=== PATIENT | female | born 1945 | race Asian ===

== ENCOUNTER → 2016-06-12 08:14 | Day surgery (SDC) | payer OTHER ==
--- NOTE | 2016-05-27 20:10 | HP ---
PREOPERATIVE HISTORY AND PHYSICAL: DATE OF ADMISSION/SURGERY: 06/12/16 This patient is scheduled for same day surgery admission by Dr. Beard on , 06/12/16. ATTENDING SURGEON: Eleazar Beard MD (dictated by Tonya Keane NP). CHIEF COMPLAINT: Ventral incisional hernia. HISTORY OF PRESENT ILLNESS: The patient is a 70-year-old female referred to Dr. Beard by Dr. Valencia for evaluation of a ventral incisional hernia. She had coronary artery bypass grafting at [facility] in August 2015 and has since developed a lump in the lower part of the sternotomy incision. She describes intermittent gripping pain when she is active or after eating. She denies any signs or symptoms to suggest incarceration or strangulation. Dr. Beard examined the patient and noted in the subxiphoid region, there is a palpable hernia of about 6 cm across which is soft, reducible, and tender. Dr. Beard reviewed her CAT scan, which confirms a hernia in that region and also the left lobe of the liver is up in there as well. Dr. Beard discussed the findings with the patient and her daughter who translates for her as the patient speaks [place]. He recommended open repair of the ventral incisional hernia with mesh as a same day surgery procedure and described the nature of the surgery, the rationale for the procedure, the relevant risks and benefits and today, I reviewed the expected postoperative care and recovery. The patient and her daughter have had a chance to ask questions and stated that they understand the information and are satisfied with the answers given to their questions. The patient will sign surgical consent on the day of surgery. PAST MEDICAL HISTORY: Significant for non-ST elevated myocardial infarction, , when she was transferred to [facility] and underwent coronary artery bypass grafting, 4 vessels, on 08/13/15, as well as aortic valve bioprosthesis and mitral valve repair. Hypertension, hyperlipidemia, left bundle branch block, diet-controlled type 2 diabetes, and osteoarthritis in most joints. PAST SURGICAL HISTORY: Coronary artery bypass graft x4, mitral valve repair, aortic valve repair with bioprosthesis, 08/13/15, at [facility]. MEDICATIONS: 1. Omeprazole 20 mg p.o. daily. 2. Lorazepam 1 mg daily at bedtime. 3. Atorvastatin 20 mg p.o. daily. 4. Losartan 25 mg p.o. daily. 5. Aspirin 81 mg p.o. daily and the patient was advised to stay on the aspirin in the perioperative period. 6. Metoprolol 25 mg half tablet daily. 7. Gabapentin 300 mg 1 capsule 2 to 3 times daily. 8. Restasis 0.05% 1 drop in both eyes b.i.d. 9. Senokot 1 to 2 tablets 1 to 2 times a day as needed. ALLERGIES: AMBIEN caused some type of unspecified reaction and IODINE-BASED DIAGNOSTIC DYE AGENTS caused rash. FAMILY HISTORY: Parents due to unknown causes. There was diabetes and hypertension in the family. SOCIAL HISTORY: She is and lives with her daughter. She speaks only [place]. She is a former smoker and quit 20 years ago. She denies the use of alcohol or other substances. REVIEW OF SYSTEMS: She denies any recent chest pain, palpitations, or dyspnea. She denies any history of deep vein thrombosis or pulmonary embolism. She has a history of coronary artery disease and myocardial infarction and coronary artery bypass grafting as well as aortic valve replacement and mitral valve replacement and ischemic cardiomyopathy and postoperative atrial fibrillation which is resolved. Please see Dr. Elder Ragsdale's consultation note from Cardiology as well as his clearance note to proceed with the upcoming surgery. She denies any dizziness or syncopal episodes. She denies any previous anesthesia complications. She denies any bleeding tendencies. She denies any nausea or vomiting. She does have occasional GERD which is improved on omeprazole. She denies any dysuria. She has osteoarthritis and walks with an unsteady gait. PHYSICAL EXAMINATION GENERAL SURVEY: The patient is a 70-year-old female, well developed, well nourished in no acute distress. VITAL SIGNS: Height 61 inches, weight 170 pounds, body mass index 32.1. Blood pressure 128/86, pulse 72 and regular, respiratory rate 18, temperature 97.3 tympanic. HEENT: Benign. NECK: Supple. No cervical lymphadenopathy. No carotid bruits. LUNGS: Bibasilar crackles. No increased work of breathing or tachypnea. HEART: Regular rate and rhythm. A 2/6 systolic murmur. Well-healed median sternotomy incision with obvious bulge at the inferior portion. The bulge measures approximately 6 cm across, is tender, soft, and reducible. ABDOMEN: Protuberant, soft, nontender throughout. No obvious organomegaly or umbilical hernia. EXTREMITIES: Warm and well perfused without edema or skin ulcerations. PELVIC AND RECTAL: Exams deferred. NEUROLOGIC: Alert and oriented x3. Gait is somewhat unsteady with transfer from exam table to chair. SKIN: Warm, dry, intact. IMPRESSION: Ventral incisional hernia. PLAN: Same day surgery admission to Dr. Beard's service on , 06/12/16 , for open repair of ventral incisional hernia with mesh. ABRAM KEANE NP CC: Dr. Beard at [facility]; Jael Valencia MD; Elder Ragsdale DO * [id number]/[facility] #: [id number] [facility]PITALKentrell
[~2016-06-12 08:14] MED LIST: Buffered Lidocaine 1% SYRIN* 3 ML/SYR SYRINGE INTRADERM ONE; Bupivacaine 0.5% W/EPI SDV* 30 ML VIAL ONE; Dexamethasone IV* 4 MG/ML 1 ML (4 MG) IV SLOW PU ONE; Dexamethasone IV* 4 MG/ML 1 ML (4 MG) ONE; EPHEDrine (Pressors)* 50 MG/ML VIAL ONE; Famotidine IV* 10 MG/ML 2 ML (20 mg) IV ONE; Famotidine IV* 10 MG/ML 2 ML (20 mg) ONE; Glycopyrrolate IV* 0.2 MG/ML 1 ML VIAL ONE; Labetalol IV* 5 MG/ML 20 ML VIAL ONE; Lidocaine 1% INJ* 10 MG/ML 30 ML SDV ONE; Lidocaine 2% PF* 5 ML VIAL ONE; Neostigmine Methylsulfate* 2 MG/2 ML SYRINGE ONE; Ondansetron INJ* 2 MG/ML VIAL ONE; PROCHLORPERAZINE INJ 5 MG/ML 2 ML VIAL IV PRN; Propofol* 10 MG/ML 20 ML BTL IV PUSH ONE; Rocuronium* 10 MG/ML VIAL ONE; ceFAZolin 2 GM PREMIX(*) 2 GM/50 ML BAG IVPB ONE; fentaNYL* 50 MCG/ML 2 ML VIAL (100 MCG VIAL) IV PRN; fentaNYL* 50 MCG/ML 2 ML VIAL (100 MCG VIAL) ONE; oxyCODONE/Acetamin 5/325 MG* TAB ONE; oxyCODONE/Acetamin 5/325 MG* TAB PO PRN
[2016-06-12 09:02] LABS: Hematocrit 37 % (35-47); Hemoglobin 12.2 g/dl (12.0-16.0)
[2016-06-12 14:45] VITALS: BP 125/70
--- NOTE | 2016-06-13 01:43 | OP ---
DATE OF OPERATION: 06/12/16 [facility] DATE OF : 47 SURGEON: Eleazar Beard MD. ASSISTANT PLANT CONTROL OPERATOR: Dr. Marcano. ANESTHESIOLOGIST: Dr. Aramblua. ANESTHESIA: General anesthetic, local infiltration. PRE-OP DIAGNOSIS: Epigastric ventral hernia. POST-OP DIAGNOSIS: Epigastric ventral hernia. OPERATIVE PROCEDURE: Open repair of epigastric ventral hernia with mesh. DESCRIPTION OF PROCEDURE: The patient was supine on the operative table. After adequate general anesthetic, compression stockings, River Hugger warmer and intravenous antibiotics, the abdomen and lower chest were prepped with antiseptic, draped in a sterile fashion. The hernia was palpable in the subxiphoid region. An ellipse of skin was taken out to remove the hypertrophic scar, and then the hernia sac was identified, it was dissected free and reduced. Additional sac material was resected and sent for pathologic evaluation. Submuscular dissection was carried out. The defect was approximately 7 cm across and roughly the same in the craniocaudad direction. A 7 x 9 inch Ventrio patch was chosen for underlay position, this was oriented transversely. It was sutured up underneath the muscle with full thickness sutures, approximately 8 sutures were put around circumferentially to help secure the patch in place and then the Securestrap tacker was used to place additional tacks for additional security, holding the mesh up and then the fascia was closed over top with 0 Vicryl. Irrigation was carried out. The subcutaneum was closed with 3-0 Vicryl, which was also used to tack down to the fascia to close the pace. Skin was closed with surgical clips followed by sterile dressing. She tolerated the procedure well and was brought to Recovery in good condition. No complications. No drains. Pathologic specimen, as above. Sponge and instrument counts correct. Estimated blood loss was less than 50 mL. CC: Eleazar Beard MD; Jael Valencia MD * [id number]/[facility] #: [id number] [facility]
== END | disposition home or self-care (01) ==
LOC: OR 08:14
PROVIDERS: ATTEND Surgery
DX: K43.2 Incisional hernia without obstruction or gangrene (principal); I25.810 Atherosclerosis of coronary artery bypass graft(s) without angina pectoris; I44.7 Left bundle-branch block, unspecified; E11.69 Type 2 diabetes mellitus with other specified complication; I25.5 Ischemic cardiomyopathy; Z95.2 Presence of prosthetic heart valve; I25.2 Old myocardial infarction; Z95.1 Presence of aortocoronary bypass graft; Z68.32 Body mass index [BMI] 32.0-32.9, adult
CPT/HCPCS: 36415; 85014; 85018; 88302; A9270-GY; C1776; C1781; J0690; J1100; J2001; J2405; J2704; J3010

== ENCOUNTER 2016-09-23 08:31 | Day surgery (SDC) | payer OTHER ==
[~2016-09-23 08:31] MED LIST changes: +Acetaminophen TAB* 325 MG PO PRN; +Buffered Lidocaine 0.9% SYRIN* 5 ML/SYR SYRINGE INTRADERM ONE; -Buffered Lidocaine 1% SYRIN* 3 ML/SYR SYRINGE INTRADERM ONE; -Bupivacaine 0.5% W/EPI SDV* 30 ML VIAL ONE; -Dexamethasone IV* 4 MG/ML 1 ML (4 MG) IV SLOW PU ONE; -Dexamethasone IV* 4 MG/ML 1 ML (4 MG) ONE; -EPHEDrine (Pressors)* 50 MG/ML VIAL ONE; -Famotidine IV* 10 MG/ML 2 ML (20 mg) IV ONE; -Famotidine IV* 10 MG/ML 2 ML (20 mg) ONE; -Glycopyrrolate IV* 0.2 MG/ML 1 ML VIAL ONE; -Labetalol IV* 5 MG/ML 20 ML VIAL ONE; -Lidocaine 1% INJ* 10 MG/ML 30 ML SDV ONE; -Lidocaine 2% PF* 5 ML VIAL ONE; -Neostigmine Methylsulfate* 2 MG/2 ML SYRINGE ONE; -Ondansetron INJ* 2 MG/ML VIAL ONE; -PROCHLORPERAZINE INJ 5 MG/ML 2 ML VIAL IV PRN; -Propofol* 10 MG/ML 20 ML BTL IV PUSH ONE; -Rocuronium* 10 MG/ML VIAL ONE; -ceFAZolin 2 GM PREMIX(*) 2 GM/50 ML BAG IVPB ONE; -fentaNYL* 50 MCG/ML 2 ML VIAL (100 MCG VIAL) IV PRN; -fentaNYL* 50 MCG/ML 2 ML VIAL (100 MCG VIAL) ONE; -oxyCODONE/Acetamin 5/325 MG* TAB ONE; -oxyCODONE/Acetamin 5/325 MG* TAB PO PRN
[2016-09-23] MEDS ORDERED: Midazolam* 1 MG/ML 2 ML VIAL (2 MG) ONE (09:27)
[2016-09-23] MEDS ORDERED: fentaNYL* 50 MCG/ML 2 ML VIAL (100 MCG VIAL) ONE (09:27)
[2016-09-23] MEDS ORDERED: Metoprolol Tartrate TAB* 25 MG ONE (09:50)
[2016-09-23] MEDS ORDERED: Propofol* 10 MG/ML 20 ML BTL IV PUSH ONE (10:11)
[2016-09-23 10:49] VITALS: BP 137/80
[2016-09-23] MEDS ORDERED: Phenylephrine 2.5% OPTH.SOL* 2 ML BTL ONE (13:59)
[2016-09-23] MEDS ORDERED: Flurbiprofen 0.03% OPTH.SOL* 2.5 ML BTL ONE (13:59)
[2016-09-23] MEDS ORDERED: Neomycin/Polymy/Dex OPHTH.OIN* 3.5 GM ONE (13:59)
[2016-09-23] MEDS ORDERED: Tropicamide 1% OPTH.SOL* BTL ONE (13:59)
[2016-09-23] MEDS ORDERED: Cyclopentolate 1% OPTH.SOL* 2 ML BTL ONE (13:59)
[2016-09-23] MEDS ORDERED: Lidocaine 1% MPF* 2 ML VIAL ONE (13:59)
[2016-09-23] MEDS ORDERED: Tetracaine 0.5% OPTH.SOL 4 ML* 1 DROP BTL ONE (14:00)
[2016-09-23] MEDS ORDERED: Buffered Lidocaine 0.9% SYRIN* 5 ML/SYR SYRINGE ONE (14:00)
--- NOTE | 2016-09-24 03:44 | OP ---
DATE OF OPERATION: 09/23/16 [facility] DATE OF : 47 SURGEON: Dr. Tim Vásquez. EVENT PLANNING INTERN: None. ANESTHESIOLOGIST: Camden Mcgarry MD ANESTHESIA: Topical with intravenous sedation. PRE-OP DIAGNOSIS: Cataract, right eye. POST-OP DIAGNOSIS: Cataract, right eye. OPERATIVE PROCEDURE: Phacoemulsification and cataract extraction with posterior chamber intraocular lens implant, right eye. COMPLICATIONS: None. BLOOD LOSS: None. DESCRIPTION OF PROCEDURE: The patient was brought to the operating room and received a small amount of intravenous sedation. A drop of tetracaine was placed in her right eye. She was prepped and draped in the usual sterile fashion for ophthalmic surgery and attention was directed to the right eye where a speculum was placed. A paracentesis was created at the 11 o'clock position and 0.1 cc of 1 percent preservative-free lidocaine was injected into the anterior chamber followed by DisCoVisc. The eye was digitally stabilized while a 2.75 mm keratome was used to create a triplanar clear corneal incision at the 9 o'clock position. A continuous curvilinear capsulorrhexis was created with a cystotome and Utrata forceps. BSS on a cannula was used to hydrodissect the lens from the capsule. Phacoemulsification was performed in a divide-and- conquer technique to create four fragments which were removed. Residual cortical material was removed with irrigation and aspiration. DisCoVisc was used to inflate the capsular bag and an AU00T0 23.5 diopter lens was folded and inserted into the capsular bag. DisCoVisc was removed using irrigation and aspiration. BSS on a cannula was used to hydrate the corneal stroma and seal the wound. At the end of the case the pupil was round and the lens was centered. The eye was of normal pressure and the wound was water tight. The speculum was removed and topical Maxitrol ointment was placed on the surface of the eye. The eye was closed, patched and shielded and the patient was sent to the recovery room in stable condition with post operative instructions and follow-up appointment given. [id number]/[facility] #: [id number] MTDD
== END 2016-09-23 10:42 | disposition home or self-care (01) ==
LOC: OREAST 08:31
PROVIDERS: ATTEND Ophthalmology
DX: H26.9 Unspecified cataract (principal); E11.8 Type 2 diabetes mellitus with unspecified complications; I25.810 Atherosclerosis of coronary artery bypass graft(s) without angina pectoris; Z87.891 Personal history of nicotine dependence; Z95.2 Presence of prosthetic heart valve
CPT/HCPCS: A9270-GY; J2250; J2704; J3010; V2632

== ENCOUNTER 2016-09-30 11:01 | Day surgery (SDC) | payer OTHER ==
[2016-09-30] MEDS ORDERED: fentaNYL* 50 MCG/ML 2 ML VIAL (100 MCG VIAL) ONE (12:22)
[2016-09-30] MEDS ORDERED: Midazolam* 1 MG/ML 2 ML VIAL (2 MG) ONE (12:22)
[2016-09-30] MEDS ORDERED: Phenylephrine 2.5% OPTH.SOL* 2 ML BTL ONE (13:41)
[2016-09-30] MEDS ORDERED: Tetracaine 0.5% OPTH.SOL 4 ML* 1 DROP BTL ONE (13:41)
[2016-09-30] MEDS ORDERED: Neomycin/Polymy/Dex OPHTH.OIN* 3.5 GM ONE (13:41)
[2016-09-30] MEDS ORDERED: Flurbiprofen 0.03% OPTH.SOL* 2.5 ML BTL ONE (13:41)
[2016-09-30] MEDS ORDERED: Lidocaine 1% MPF* 2 ML VIAL ONE (13:41)
[2016-09-30] MEDS ORDERED: Cyclopentolate 1% OPTH.SOL* 2 ML BTL ONE (13:41)
[2016-09-30] MEDS ORDERED: Tropicamide 1% OPTH.SOL* BTL ONE (13:41)
[2016-09-30] MEDS ORDERED: Buffered Lidocaine 0.9% SYRIN* 5 ML/SYR SYRINGE ONE (13:42)
[2016-09-30 14:16] VITALS: BP 138/80
--- NOTE | 2016-09-30 15:30 | OP ---
DATE OF OPERATION/DATE OF DICTATION: 09/30/2016 - [facility] DATE OF : 1945. SURGEON: Dr. Tim Vásquez. WAREHOUSE SHIFT SUPERVISOR: None. ANESTHESIOLOGIST: Camden Mcgarry MD ANESTHESIA: Topical with intravenous sedation. PRE-OP DIAGNOSIS: Cataract, left eye. POST-OP DIAGNOSIS: Cataract, left eye. OPERATIVE PROCEDURE: Phacoemulsification and cataract extraction with posterior chamber intraocular lens implant, left eye. COMPLICATIONS: None. BLOOD LOSS: None. DESCRIPTION OF PROCEDURE: The patient was brought to the operating room and received a small amount of intravenous sedation. A drop of Tetracaine was placed in her left eye. She was prepped and draped in the usual sterile fashion for ophthalmic surgery and attention was directed to the left eye where a speculum was placed. A paracentesis was created at the 5 o'clock position and 0.1 cc of 1 percent preservative-free Lidocaine was injected into the anterior chamber followed by DisCoVisc. The eye was digitally stabilized while a 2.75 mm keratome was used to create a triplanar clear corneal incision at the 3 o'clock position. A continuous curvilinear capsulorrhexis was created with a cystotome and Utrata forceps. BSS on a cannula was used to hydrodissect the lens from the capsule. Phacoemulsification was performed in a divide-and- conquer technique to create four fragments which were removed. Residual cortical material was removed with irrigation and aspiration. DisCoVisc was used to inflate the capsular bag and an AUOTTO 23.5 diopter lens was folded and inserted into the capsular bag. DisCoVisc was removed using irrigation and aspiration. BSS on a cannula was used to hydrate the corneal stroma and seal the wound. At the end of the case the pupil was round and the lens was centered. The eye was of normal pressure and the wound was water tight. The speculum was removed and topical Maxitrol ointment was placed on the surface of the eye. The eye was closed, patched and shielded and the patient was sent to the recovery room in stable condition with post operative instructions and follow-up appointment given. [id number]/[facility] #: [id number] [facility] SYSTEMKentrell
== END 2016-09-30 14:12 | disposition home or self-care (01) ==
LOC: OREAST 11:01
PROVIDERS: ATTEND Ophthalmology
DX: H25.12 Age-related nuclear cataract, left eye (principal); E11.9 Type 2 diabetes mellitus without complications; Z79.84 Long term (current) use of oral hypoglycemic drugs; Z87.891 Personal history of nicotine dependence; I25.10 Atherosclerotic heart disease of native coronary artery without angina pectoris; Z95.1 Presence of aortocoronary bypass graft; I10 Essential (primary) hypertension
CPT/HCPCS: A9270-GY; J2250; J3010

== ENCOUNTER 2018-03-19 16:45 | Emergency (ER) | payer OTHER ==
[2018-03-19 17:01] VITALS: BP 156/81
[2018-03-19] MEDS ORDERED: Albuterol/Ipratropium NEB.SOL* Albuterol 2.5 MG/Ipratropium 0.5 MG 3 ML INH ONE ×2 (17:08→17:27)
--- NOTE | 2018-03-19 17:21 | UC ---
Respiratory Complaint HPI - HPI Summary HPI Summary: Patient presents to urgent care with her daughter. Patient speaks [place] Citizen. Patient's daughter present and interpreting. Declined offer for [facility]- based translating services. Patient reported to have a cough for the last 2-3 days. Daughter states she had a fever to 101 yesterday. No antipyretics or fevers today. Patient with progressive wheezing complains of shortness of breath. Patient's cough is productive although she doesn't know color. Patient states she gets short of breath with activity. Patient denies chest pain. No nausea or vomiting. Patient states she makes urine and no diarrhea. Patient does not currently smoke. Patient with a history of tobacco use but quit several years ago. Patient to get the flu vaccine approximately 1 month ago. Patient does not have any known sick contacts. Patient does have a history of open-heart surgery for which her daughter states she had her bowels fixed. Unsure which valve. Patient has not have a history of congestive heart failure. Patient has not had any ankle or leg swelling to report. Patient's medications reviewed this visit. 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 Onset/Duration: Gradual Onset Timing: Constant Pain Intensity: 0 - Allergies/Home Medications Allergies/Adverse Reactions: Allergies Allergy/AdvReac Type Severity Reaction Status Date / Time iodine Allergy Rash Verified 03/19/18 17:02 zolpidem [From Ambien] Allergy Hallucinati Verified 03/19/18 17:02 ons PMH/Surg Hx/FS Hx/Imm Hx Endocrine History: Diabetes, Dyslipidemia Cardiovascular History: Other - cardiac valve surgery Respiratory History: Other - previous tobacco use - none current Other History Of: Anticoagulant Therapy - Surgical History Surgical History: Yes Surgery Procedure, Year, and Place: CABG X4, AVR, MV Repair, Saphenous vein graft harvest, c section - Family History Family History: R & n/C - Social History Lives: With Family Alcohol Use: None Substance Use Type: None Smoking Status (MU): Former Smoker Type: Cigarettes Amount Used/How Often: 2 packs a day Length of Time of Smoking/Using Tobacco: quit 20 years ago Have You Smoked in the Last Year: No When Did the Patient Quit Smoking/Using Tobacco: 20 yrs ago Household Exposure Type: Cigarettes - Immunization History Most Recent Influenza Vaccination: 2016 Most Recent Tetanus Shot: unk Most Recent Pneumonia Vaccination: 2016 Review of Systems All Other Systems Reviewed And Are Negative: Yes Constitutional: Positive: Fever, Fatigue Skin: Positive: Negative Respiratory: Positive: Shortness Of Breath, Cough, Other - wheeze Cardiovascular: Positive: Negative Gastrointestinal: Positive: Negative Motor: Positive: Negative Physical Exam - Summary Physical Exam Summary: Vital Signs Reviewed: Yes - tacynpneic - repeat temp - no fever A, tachypnea, tired appearing, audible wheeze Eyes: Conjunctiva Clear, MAIA. EOM intact and full ENT: Hearing grossly normal TM x 2 clear, mmoist, uvula midline, no exudate, no erythema Neck: Positive: Supple Respiratory: Positive: increased RR, coarse cough with yellow production, rhonci right base, scatterd wheeze, + accessory muscle use, ext warm 1+ edema LE Cardiovascular: RRR nl s1, s2 no m/r CBT <2 sec abd soft + BS nt/nd no guarding, no distension Musculoskeletal Exam: SALAS x 4 without difficulty Strength Intact, ROM Intact Neurological: Positive: Alert, + sensation throughout Psychological: Positive: Normal Response To Family Skin: Positive: no rash, no ecchymosis Triage Information Reviewed: Yes Vital Signs: Initial Vital Signs Temp 98.7 F 03/19/18 16:57 Pulse 67 03/19/18 16:57 Resp 44 03/19/18 16:57 BP 156/81 03/19/18 16:57 Pulse Ox 99 03/19/18 16:57 UC Diagnostic Evaluation - Laboratory O2 Sat by Pulse Oximetry: 99 - Radiology Radiology Interpretation Completed By: Radiologist - Patient Name: EMILEE SOUTH Medical Record#: [id number] Re-Evaluation - Re-Evaluation First Eval Re-Evaluation Time: 17:50 Change: Improved - Pt with improved RR following first neb continues with coarse BS right and scattered wheeze Will check chest xray and second neb Second Eval Re-Evaluation Time: 18:15 Comment: Pt continues with wheeze and reporting SOB. CXR reveals b/l infiltrates. Recommend pt to ED - daughter and pt in agreement. Transfer by EMS for resp treatment, IVF (sepsis considered) and monitoring. influenza neg Respiratory Course/Dx - Course Course Of Treatment: Patient presents to urgent care with 3 days progressive productive cough of yellow sputum. Patient also has had a fever but not in the last 24 hours. Patient here today because of cough and progressive shortness of breath with ambulation. On exam patient noted to be tachypneic using accessory muscles. Patient with rhonchi right base and diffuse inspiratory next 3 wheezing. Patient afebrile on the check 2. We'll give patient DuoNeb. We will check a chest x-ray we'll check flew. Patient does not markedly improved will likely transfer patient to the emergency department. Of note, patient does not speak [place]ian. Patient speaks [place] Citizen. Patient's daughter is present and interpreted for her. Hospital interpretation services declined - Differential Dx/Diagnosis Provider Diagnosis: Bilateral pneumonia Discharge - Sign-Out/Discharge Documenting (check all that apply): Patient Departure All imaging exams completed and their final reports reviewed: Yes - Discharge Plan Condition: Good Disposition: TRANS HIGHER LVL OF CARE FAC Referrals: Jael Valencia MD [Primary Care Provider] - - Billing Disposition and Condition Condition: GOOD Disposition: Trans Higher Lvl of Care Fac
[2018-03-19] MEDS ORDERED: methylPREDNISolone 125 MG* 2 ML VIAL IV ONE (18:05)
[2018-03-19] MEDS ORDERED: NS 0.9% 1000 ML* 1,000 ML IV ONE (18:05)
== END 2018-03-19 18:32 | disposition short-term general hospital (02) ==
LOC: UCEAST 16:45
DX: J18.9 Pneumonia, unspecified organism (principal); E11.9 Type 2 diabetes mellitus without complications; Z88.8 Allergy status to other drugs, medicaments and biological substances; Z95.1 Presence of aortocoronary bypass graft; Z87.891 Personal history of nicotine dependence
CPT/HCPCS: 71046; 99203; A9270-GY; G0463; J2930

== ENCOUNTER 2018-03-19 18:55 | Inpatient (IN) | payer OTHER ==
[2018-03-19] MEDS ORDERED: cefTRIAXone(*) 1 GM in NS 0.9% 50 ML* 50 ML IVPB ONE (19:08)
[2018-03-19] MEDS ORDERED: Azithromycin IV(*) 500 MG in NS 0.9% 250 ML* 250 ML IVPB ONE (19:08)
[2018-03-19] MEDS ORDERED: NS 0.9% 1000 ML*IV.FLUID IV ONE (19:15)
--- NOTE | 2018-03-19 19:15 | ED ---
Complex/Multi-Sys Presentation - HPI Summary HPI Summary: 72 year old F brought in by ambulance to [facility] from Urgent Care accompanied by daughter complains of cough since five days ago, worse since this afternoon. Symptoms aggravated by nothing. Symptoms alleviated by nothing. Patient's daughter delivers history. She notes that patient reported waxing and waning shortness of breath, chills, fever since 03/14/18. Additionally, patient feels shakey, weak, and has decreased appetite. Patient was seen this afternoon at Urgent Care, where she had CXR and received fluids and breathing treatment. CXR showed bilateral pneumonia. - History Of Current Complaint Chief Complaint: EDShortnessOfBreath Time Seen by Provider: 03/19/18 19:00 Hx Obtained From: Family/News Copy Editor - daughter Onset/Duration: Lasting Days - 5, Worse Since - this afternoon Severity Currently: None Aggravating Factor(s): Nothing Alleviating Factor(s): Nothing Associated Signs And Symptoms: Positive: Other - shortness of breath, chills, fever, shakiness, weakness, decreased appetite - Allergies/Home Medications Allergies/Adverse Reactions: Allergies Allergy/AdvReac Type Severity Reaction Status Date / Time iodine Allergy Rash Verified 03/19/18 17:02 zolpidem [From Ambien] Allergy Hallucinati Verified 03/19/18 17:02 ons PMH/Surg Hx/FS Hx/Imm Hx Previously Healthy: No Endocrine/Hematology History: Reports: Hx Anticoagulant Therapy, Hx Diabetes - not on medication Cardiovascular History: Reports: Hx Coronary Artery Disease, Hx Hypercholesterolemia, Hx Hypertension - on meds, Hx Valvular Heart Disease - mitral valve repair, Other Cardiovascular Problems/Disorders - LEFT BUNDLE BRANCH BLOCK Denies: Hx Angina, Hx Congestive Heart Failure, Hx Pacemaker/ICD GI History: Reports: Hx Gastroesophageal Reflux Disease Denies: Other GI Disorders History: Reports: Other Problems/Disorders - ACUTE RENAL FAILURE, LISTED IN SUMMARY Denies: Hx Renal Disease Musculoskeletal History: Reports: Hx Arthritis - luis knees, Hx Osteoporosis, Other Musculoskeletal History - OPEN VENTRAL HERNIA REPAIR JUNE 2016 Sensory History: Reports: Hx Contacts or Glasses Denies: Hx Hearing Aid Opthamlomology History: Reports: Hx Contacts or Glasses Neurological History: Reports: Hx Headaches, Hx Peripheral Neuropathy Denies: Other Neuro Impairments/Disorders Psychiatric History: Reports: Hx Anxiety - on meds - Cancer History Hx Chemotherapy: No Hx Radiation Therapy: No - Surgical History Surgery Procedure, Year, and Place: CABG X4, AVR, MV Repair, Saphenous vein graft harvest, c section Hx Anesthesia Reactions: No Infectious Disease History: No Infectious Disease History: Denies: Hx Clostridium Difficile, Hx Hepatitis, Hx Human Immunodeficiency Virus (HIV), Hx of Known/Suspected MRSA, Hx Shingles, Hx Tuberculosis, Hx Known/ Suspected VRE, Hx Known/Suspected VRSA, History Other Infectious Disease, Traveled Outside the [place] in Last 30 Days - Family History Known Family History: Negative: Cardiac Disease Family History: R & n/C - Social History Alcohol Use: None Hx Substance Use: No Substance Use Type: Reports: None Hx Tobacco Use: Yes Smoking Status (MU): Former Smoker Type: Cigarettes Amount Used/How Often: 2 packs a day Length of Time of Smoking/Using Tobacco: quit 20 years ago Have You Smoked in the Last Year: No Review of Systems Positive: Fever, Chills, Other - shakiness, weakness Positive: Shortness Of Breath, Cough Positive: Other - decreased appetite All Other Systems Reviewed And Are Negative: Yes Physical Exam - Summary Physical Exam Summary: Appearance: General non-toxic appearance, afebrile, in mild respiratory distress with tachypnea Skin: Warm, dry, no obvious rash Eyes: sclera anicteric, no conjunctival pallor ENT: mucous membranes moist, pharynx appears normal Neck: Supple, nontender Respiratory: Bilateral diffuse ronchi and wheezes with bronchial breath sounds on the right Cardiovascular: Normal S1, S2. No murmurs. Normal distal pulses in tibial and radial bilaterally. Abdomen: Soft, nontender, normal active bowel sounds present Musculoskeletal: Normal, Strength/ROM Intact Neurological: A&Ox3, awake and alert, mentation is normal, speech is fluent and appropriate Psychiatric: affect is normal, does not appear anxious or depressed Triage Information Reviewed: Yes Vital Signs On Initial Exam: Initial Vitals Temp Pulse Resp BP Pulse Ox 99.3 F 87 25 164/99 97 03/19/18 19:06 03/19/18 19:06 03/19/18 19:06 03/19/18 19:06 03/19/18 19:06 Vital Signs Reviewed: Yes Diagnostics - Vital Signs Vital Signs Temp Pulse Resp BP Pulse Ox 03/19/18 19:06 99.3 F 87 25 164/99 97 - Laboratory Result Diagrams: 12/15/18 08:24 03/20/18 08:24 Lab Statement: Any lab studies that have been ordered have been reviewed, and results considered in the medical decision making process. - EKG 2004 Cardiac Rate: NL - 93 BPM EKG Rhythm: Sinus Rhythm Summary of EKG Findings: NSR at 93 BPM. Left bundle branch block Complex Multi-Symp Course/Dx Course Of Treatment: 72 year old F brought in by ambulance to [facility] from Urgent Care accompanied by daughter complains of cough, shortness of breath, fever, chills, increasing weakness since 5 days ago, worse since this afternoon. Patient was seen this afternoon at Urgent Care, where she had CXR and received fluids and breathing treatment. CXR from showed bilateral pneumonia. Bloodwork came back remarkable for lactic acid 3.4. UA unremarkable. EKG showed LBBB. Patient started on IV antibiotics. Discussed with Dr. Grijalva, hospitalist, who agrees to admit patient to [facility] [place]. Discussed disposition plan with patient and daughter who are both agreeable to admission. - Diagnoses Provider Diagnoses: Bilateral pneumonia - Physician Notifications Discussed Care Of Patient With: Chasidy Grijalva Time Discussed With Above Provider: 20:35 Instructed by Provider To: Other - Dr. Grijalva, hospitalist, agrees to admit patient. Discharge - Sign-Out/Discharge Documenting (check all that apply): Patient Departure - Admit - Discharge Plan Condition: Fair Disposition: ADMITTED TO [facility] - Billing Disposition and Condition Condition: FAIR Disposition: Admitted to [facility] - Attestation Statements Document Initiated by Edene: Yes Documenting Scribe: Makayla Garcia Provider For Whom Ryan is Documenting (Include Credential): David Jovel MD Scribrhonda Attestation: Makayla Bradley, scribed for David Jovel MD on 03/20/18 at 1816. Scribe Documentation Reviewed: Yes Provider Attestation: The documentation as recorded by the Makayla christie accurately reflects the service I personally performed and the decisions made by me, David Jovel MD Status of Scribe Document: Viewed
[2018-03-19] MEDS ORDERED: Albuterol/Ipratropium NEB.SOL* Albuterol 2.5 MG/Ipratropium 0.5 MG 3 ML INH ONE (19:21)
[2018-03-19] MEDS ORDERED: Albuterol/Ipratropium NEB.SOL* Albuterol 2.5 MG/Ipratropium 0.5 MG 3 ML ONE (19:23)
[2018-03-19 20:00] LABS: ABS Basophils 0 10^3/ul (0-0.2); ABS Eosinophils 0.8 10^3/ul (0-0.6); ABS Lymphocytes 1.7 10^3/ul (1.0-4.8); ABS Monocytes 0.4 10^3/ul (0-0.8); ABS Neutrophils 5.6 10^3/ul (1.5-7.7); ABS Nucleated RBC 0 10^3/ul; Eosinophil % 9.1 %; Hematocrit 37 % (35-47); Hemoglobin 12.5 g/dl (12.0-16.0); Lymphocyte % 19.5 %; Mean Corpuscular HGB Conc 33 g/dl (31-36); Mean Corpuscular Hemoglobin 30 pg (27-31); Mean Corpuscular Volume 91 fL (80-97); Mean Platelet Volume 8.5 fL (7.4-10.4); Nucleated Red Blood Cells % 0; Platelet Count 197 10^3/ul (150-450); Red Cell Distribution Width 14 % (10.5-15); White Blood Count 8.5 10^3/ul (3.5-10.8)
[2018-03-19 20:08] LABS: INR 1.02 (0.77-1.02)
[2018-03-19 20:19] LABS: Albumin 4.1 g/dL (3.2-5.2); Albumin/Globulin Ratio 1.1 (1-3); C Reactive Protein 83.97 mg/L (<8.01); Calcium 9.1 mg/dL (8.6-10.3); Globulin 3.7 g/dL (2-4); Potassium 3.2 mmol/L (3.5-5.0); Total Bilirubin 0.7 mg/dL (0.2-1.0); Total Protein 7.8 g/dL (6.4-8.9)
[2018-03-19] MEDS ORDERED: Acetaminophen TAB* 325 MG PO PRN (20:50)
[2018-03-19] MEDS ORDERED: Albuterol/Ipratropium NEB.SOL* Albuterol 2.5 MG/Ipratropium 0.5 MG 3 ML INH PRN (20:50)
[2018-03-19] MEDS ORDERED: Levalbuterol 0.63MG/3ML NEB* UNIT OF USE INH PRN (20:56)
[2018-03-19] MEDS ORDERED: NS 0.9% 1000 ML* 1,000 ML IV SCH (21:00)
--- NOTE | 2018-03-19 21:05 | ADMNOTE ---
Subjective Date of Service: 03/19/18 Interval History: code status full this is admission h/p h/p got from son who does not know her phx and meds that well ( he has been away [place] ) daughter is the caregiver pt herself is not a good historian hpi this is a 72 yr old female with cabg 4 v 1 yr ago was brought in by daughter after 3 day hx of sob upon ambulation/coughing/fever. pt told daughter that she could not breathe and spike to 102. daughter brought her to urgent --- > chest x ray showed b/l infil with neg flu ---> referred to er. pt was initially in mild to mod resp distress ---> got duoneb and rocephin/z pack for community acuqired pna ---> initial bnp 578 but she was found to have diffuse rales and wheezing upon exam ---> rr has decreased close to 20s got close 1.5 liter ivf from er. phx htn copd not on home oxygen cabg with 4 v one yr ago at [place] lbbb hyperlipidemia prob dm but son and pt herself could not verify ( dm diagnosis in cpoe ) pshx s/p cabg with 4 v social hx quit cig 30 yrs ago but and son still smokes no etoh able to walk indep fhx denied gracia Review of Systems - Measurements Intake and Output: Intake and Output Last 24 Hours 03/17/18 03/18/18 03/19/18 03/20/18 06:59 06:59 06:59 06:59 Weight 170 lb - Review of Systems General Comments: pertinent as per hpi Objective Active Medications: Acetaminophen (Tylenol Tab*) 650 mg PO Q6H PRN PRN Reason: FEVER/PAIN Albuterol/Ipratropium (Duoneb (Albuterol 2.5 Mg/Ipratropium 0.5 Mg)) 1 neb INH [id number] AWAKE PRN PRN Reason: sob/wheexing Aspirin (Aspirin Ec Tab*) 81 mg PO QAM [facility] Atorvastatin Calcium (Lipitor*) 40 mg PO QPM [facility] Cyclosporine (Restasis 0.05% Ophth) 1 drop BOTH EYES BID [facility]; Protocol Enoxaparin Sodium (Lovenox(*)) 40 mg SUBCUT Q24H [facility] Gabapentin (Neurontin Cap(*)) 300 mg PO BID [facility] Guaifenesin/Dextromethorphan (Robitussin Dm*) 5 ml PO Q4H PRN PRN Reason: COUGH Sodium Chloride (Ns 0.9% 1000 Ml*) 1,000 mls @ 100 mls/hr IV PER RATE [facility] Ceftriaxone Sodium 1 gm/ (Sodium Chloride) 50 mls @ 200 mls/hr IVPB Q24H [facility] Azithromycin 500 mg/ Sodium (Chloride) 250 mls @ 250 mls/hr IVPB Q24H [facility] Levalbuterol HCl (Xopenex 0.63mg/3ml Neb*) 0.63 mg INH Q2H PRN PRN Reason: SHORTNESS OF BREATH Losartan Potassium (Cozaar Tab*) 25 mg PO QAM [facility] Metoprolol Tartrate (Lopressor Tab*) 12.5 mg PO BID [facility] Non-Formulary Medication (Bisacodyl [Dulcolax]) 1 tab PO SEE INSTRUCTIONS PRN PRN Reason: CONSTIPATION Omeprazole (Prilosec Cap*) 20 mg PO QPM [facility] Vital Signs - 8 hr 03/19/18 03/19/18 03/19/18 19:06 19:08 19:22 Temperature 99.3 F Pulse Rate 87 88 Respiratory 25 35 Rate Blood Pressure 164/99 (mmHg) O2 Sat by Pulse 97 95 99 Oximetry 03/19/18 20:17 Temperature Pulse Rate 82 Respiratory 32 Rate Blood Pressure 143/88 (mmHg) O2 Sat by Pulse 95 Oximetry Oxygen Devices in Use Now: Nasal Cannula Appearance: in mild distress Eyes: No Scleral Icterus, PERRLA Ears/Nose/Mouth/Throat: NL Teeth, Lips, Gums, Clear Oropharnyx, Mucous Membranes Moist Neck: NL Appearance and Movements; NL JVP, Trachea Midline, No Thyroid Enlargement, Masses Respiratory: - - equal chest expansion in mild resp distress b/l diffuse ronchi and wheezing Abdominal: NL Sounds; No Tenderness; No Distention Extremities: No Edema, - - able to raise ue and le against gravity Skin: No Rash or Ulcers Neurological: Alert and Oriented x 3, NL Sensation, NL Muscle Strength and Tone Result Diagrams: 03/19/18 19:43 03/19/18 19:43 EKG Data: ns lbbb Assess/Plan/Problems-Billing Assessment: 72 yr old wf with hx of cad s/p cabg 4 v one yr ago copd not on home oxygen presented with sob/wheeler/wheezing/fever to 102 ---> initial wbc wnl but chest x ray done in urgent clinic showed b/l pna bnp on admission is close to 500 wbc is wnl - Patient Problems (1) Community acquired pneumonia Current Visit: Yes Status: Acute Code(s): J18.9 - PNEUMONIA, UNSPECIFIED ORGANISM SNOMED Code(s): 841274164 Comment: kyle and mg duoneb with xopenex prn oxygen as tolerated robutussin ck sputum cx (2) CAD (coronary artery disease) Current Visit: Yes Status: Acute Code(s): I25.10 - ATHSCL HEART DISEASE OF [place] CORONARY ARTERY W/O ANG PCTRS SNOMED Code(s): 45080197 Comment: tele with rosaura due to wheeler c/o echo continue outpt meds (3) COPD (chronic obstructive pulmonary disease) Current Visit: Yes Status: Acute Code(s): J44.9 - CHRONIC OBSTRUCTIVE PULMONARY DISEASE, UNSPECIFIED SNOMED Code(s): 98677606 Comment: oxygen support duoneb solumderol 40 mg times one given followed by solumderol 20 mg q 8 (4) HTN (hypertension) Current Visit: Yes Status: Acute Code(s): I10 - ESSENTIAL (PRIMARY) HYPERTENSION SNOMED Code(s): 08481031 Comment: sbp wnl continue outpt meds (5) Diastolic CHF Current Visit: Yes Status: Acute Code(s): I50.30 - UNSPECIFIED DIASTOLIC ( CONGESTIVE) HEART FAILURE SNOMED Code(s): 191039577 Comment: pt was found to have diffuse ronchi lasix 20 mg ivp times one moniter lytes echo in am (6) Hyperlipidemia Current Visit: Yes Status: Acute Code(s): E78.5 - HYPERLIPIDEMIA, UNSPECIFIED SNOMED Code(s): 66044334 Comment: lft wnl ck fasting lipid (7) DVT prophylaxis Current Visit: Yes Status: Acute Code(s): DLH8672 - SNOMED Code(s): 665883517 (8) Full code status Current Visit: Yes Status: Acute Code(s): Z78.9 - OTHER SPECIFIED HEALTH STATUS SNOMED Code(s): 475141064
[2018-03-19 21:25] LABS: Urine Appearance Clear; Urine Bacteria Absent (Absent); Urine Bilirubin Negative (Negative); Urine Blood 1+ (Negative); Urine Color Colorless; Urine Glucose Negative (Negative); Urine Ketones Negative (Negative); Urine Nitrite Negative (Negative); Urine Protein Negative (Negative); Urine Red Blood Cell Absent (Absent); Urine Specific Gravity 1.002 (1.010-1.030); Urine Urobilinogen Negative (Negative); Urine White Blood Cell Absent (Absent)
[2018-03-19] MEDS ORDERED: methylPREDNISolone SOD 40 MG* 1 ML VIAL IV ONE (21:30)
[2018-03-19] MEDS ORDERED: Furosemide IV* 10 MG/ML 2 ML VIAL (20 MG) IV ONE (21:30)
[2018-03-19] MEDS ORDERED: Magnesium Sulfate 1 GM IV* 1 GM/100 ML BAG IV ONE (21:30)
[2018-03-19] MEDS: Enoxaparin(*) 40 MG/0.4 ML SYR SUBCUT SCH (23:14)
[2018-03-19] MEDS: Metoprolol Tartrate TAB* 25 MG PO SCH (23:16)
[2018-03-19] MEDS: Gabapentin CAP(*) 300 MG PO SCH (23:16)
[2018-03-19] MEDS: Bisacodyl EC TAB* 5 MG PO PRN (23:17)
[2018-03-19] MEDS: CMCS:Cyclosporine 0.05% OPHTH (NF) 0.4 ML VIAL BOTH EYES SCH (23:17)
[2018-03-19] MEDS: Melatonin 3 MG TAB PO PRN (23:50)
[2018-03-20] MEDS: methylPREDNISolone SOD 40 MG* 1 ML VIAL IV SCH ×3 (05:54→20:31)
[2018-03-20] MEDS ORDERED: Potassium Chlor TAB* 20 MEQ TAB.ER PO SCH (06:00)
[2018-03-20] MEDS ORDERED: Furosemide IV* 10 MG/ML 2 ML VIAL (20 MG) IV ONE (06:00)
[2018-03-20] MEDS ORDERED: Potassium Chlor TAB* 20 MEQ TAB.ER PO ONE (06:00)
[2018-03-20] MEDS: Levalbuterol 0.63MG/3ML NEB* UNIT OF USE INH SCH ×3 (07:21→19:40)
[2018-03-20] MEDS: Furosemide IV* 10 MG/ML 2 ML VIAL (20 MG) IV SCH ×2 (08:18→20:31)
[2018-03-20] MEDS: Losartan TAB* 25 MG PO SCH (08:18)
[2018-03-20] MEDS: Gabapentin CAP(*) 300 MG PO SCH ×2 (08:18→20:28)
[2018-03-20] MEDS: Aspirin EC TAB* 81 MG TAB.EC PO SCH (08:19)
[2018-03-20] MEDS: Metoprolol Tartrate TAB* 25 MG PO SCH ×2 (08:19→20:27)
[2018-03-20] MEDS: Insulin REGULAR(*) 1 UNITS UNIT SUBCUT SCH ×4 (08:20→20:29)
[2018-03-20] MEDS: CMCS:Cyclosporine 0.05% OPHTH (NF) 0.4 ML VIAL BOTH EYES SCH ×2 (08:24→20:38)
[2018-03-20 08:56] LABS: ABS Basophils 0 10^3/ul (0-0.2); ABS Eosinophils 0 10^3/ul (0-0.6); ABS Lymphocytes 0.7 10^3/ul (1.0-4.8); ABS Monocytes 0.1 10^3/ul (0-0.8); ABS Neutrophils 10.1 10^3/ul (1.5-7.7); ABS Nucleated RBC 0 10^3/ul; Eosinophil % 0 %; Hematocrit 37 % (35-47); Hemoglobin 12.4 g/dl (12.0-16.0); Lymphocyte % 6.4 %; Mean Corpuscular HGB Conc 33 g/dl (31-36); Mean Corpuscular Hemoglobin 30 pg (27-31); Mean Corpuscular Volume 91 fL (80-97); Mean Platelet Volume 8.4 fL (7.4-10.4); Nucleated Red Blood Cells % 0; Platelet Count 236 10^3/ul (150-450); Red Blood Count 4.11 10^6/ul (4.00-5.40); Red Cell Distribution Width 14 % (10.5-15); White Blood Count 10.9 10^3/ul (3.5-10.8)
[2018-03-20 09:33] LABS: BUN/Creatinine Ratio 16.9 (8-20); Calcium 9.2 mg/dL (8.6-10.3); EGFR Non-African American 62.5 (>60); HDL Cholesterol 33.8 mg/dL; Potassium 3.2 mmol/L (3.5-5.0)
[2018-03-20 09:45] LABS: TSH (Thyroid Stimulating Horm) 0.31 mcIU/mL (0.34-5.60)
--- NOTE | 2018-03-20 15:49 | PN ---
Subjective Date of Service: 03/20/18 Interval History: Reports some improvement in breathing Objective Active Medications: Acetaminophen (Tylenol Tab*) 650 mg PO Q6H PRN PRN Reason: FEVER/PAIN Albuterol/Ipratropium (Duoneb (Albuterol 2.5 Mg/Ipratropium 0.5 Mg)) 1 neb INH [id number] AWAKE PRN PRN Reason: sob/wheexing Aspirin (Aspirin Ec Tab*) 81 mg PO QAM [facility] Last Admin: 03/20/18 08:19 Dose: 81 mg Atorvastatin Calcium (Lipitor*) 40 mg PO QPM [facility] Bisacodyl (Dulcolax Ec Tab*) 5 mg PO DAILY PRN PRN Reason: CONSTIPATION Last Admin: 03/19/18 23:17 Dose: 5 mg Cyclosporine (Restasis 0.05% [facility]) 1 drop BOTH EYES BID [facility]; Protocol Last Admin: 03/20/18 08:24 Dose: 1 drop Enoxaparin Sodium (Lovenox(*)) 40 mg SUBCUT Q24H [facility] Last Admin: 03/19/18 23:14 Dose: 40 mg Furosemide (Lasix Iv*) 20 mg IV BID [facility] Last Admin: 03/20/18 08:18 Dose: 20 mg Gabapentin (Neurontin Cap(*)) 300 mg PO BID [facility] Last Admin: 03/20/18 08:18 Dose: 300 mg Guaifenesin/Dextromethorphan (Robitussin Dm*) 5 ml PO Q4H PRN PRN Reason: COUGH Ceftriaxone Sodium 1 gm/ (Sodium Chloride) 50 mls @ 200 mls/hr IVPB Q24H [facility] Azithromycin 500 mg/ Sodium (Chloride) 250 mls @ 250 mls/hr IVPB Q24H [facility] Insulin Human Regular (Insulin Regular(*)) 0 units SUBCUT ACHS [facility]; Protocol Last Admin: 03/20/18 14:03 Dose: 8 units Levalbuterol HCl (Xopenex 0.63mg/3ml Neb*) 0.63 mg INH [id number] AWAKE [facility] Last Admin: 03/20/18 12:33 Dose: 0.63 mg Losartan Potassium (Cozaar Tab*) 25 mg PO QAM [facility] Last Admin: 03/20/18 08:18 Dose: 25 mg Melatonin (Melatonin) 3 mg PO BEDTIME PRN; Protocol PRN Reason: SLEEP Last Admin: 03/19/18 23:50 Dose: 3 mg Methylprednisolone Sodium Succinate (Solu-Medrol 40 Mg) 20 mg IV Q8H [facility] Last Admin: 03/20/18 14:03 Dose: 20 mg Metoprolol Tartrate (Lopressor Tab*) 12.5 mg PO BID [facility] Last Admin: 03/20/18 08:19 Dose: 12.5 mg Omeprazole (Prilosec Cap*) 20 mg PO QPM [facility] Vital Signs - 8 hr 03/20/18 03/20/18 03/20/18 08:00 08:18 10:20 Pulse Rate Respiratory 22 20 22 Rate O2 Sat by Pulse 98 Oximetry 03/20/18 12:35 Pulse Rate 66 Respiratory 16 Rate O2 Sat by Pulse 98 Oximetry Oxygen Devices in Use Now: Nasal Cannula Eyes: No Scleral Icterus Ears/Nose/Mouth/Throat: Mucous Membranes Moist Neck: NL Appearance and Movements; NL JVP Respiratory: - - Bilateral wheezes and basal crackles Cardiovascular: NL Sounds; No Murmurs; No JVD Abdominal: NL Sounds; No Tenderness; No Distention Extremities: No Edema Skin: No Rash or Ulcers Neurological: Alert and Oriented x 3 Result Diagrams: 03/20/18 08:24 03/20/18 08:24 Microbiology and Other Data: Microbiology 03/20/18 06:10 Gram Stain - Final Sputum Expectorated 03/19/18 23:39 Influenza Types A,B Antigen - Final Nasal Specimen received for Influenza A/B Molecular testing EKG Data: ns lbbb Assess/Plan/Problems-Billing Assessment: 72 yr old wf with hx of cad s/p cabg 4 v one yr ago copd not on home oxygen presented with sob/wheeler/wheezing/fever to 102 ---> initial wbc wnl but chest x ray done in urgent clinic showed b/l pna bnp on admission is close to 500 wbc is wnl - Patient Problems (1) Community acquired pneumonia Current Visit: Yes Status: Acute Code(s): J18.9 - PNEUMONIA, UNSPECIFIED ORGANISM SNOMED Code(s): 334518009 Comment: rocephin and zpack duoneb with xopenex prn oxygen as tolerated robutussin ck sputum cx (2) COPD (chronic obstructive pulmonary disease) Current Visit: Yes Status: Acute Code(s): J44.9 - CHRONIC OBSTRUCTIVE PULMONARY DISEASE, UNSPECIFIED SNOMED Code(s): 65003471 Comment: oxygen support duoneb solumderol 40 mg times one given followed by solumderol 20 mg q 8 (3) CAD (coronary artery disease) Current Visit: Yes Status: Acute Code(s): I25.10 - ATHSCL HEART DISEASE OF [place] CORONARY ARTERY W/O ANG PCTRS SNOMED Code(s): 86890595 Comment: tele with rosaura due to wheeler c/o echo continue outpt meds (4) Diastolic CHF Current Visit: Yes Status: Acute Code(s): I50.30 - UNSPECIFIED DIASTOLIC ( CONGESTIVE) HEART FAILURE SNOMED Code(s): 272210722 Comment: pt was found to have diffuse ronchi recd lasix 20 mg ivp times one moniter lytes echo (5) DVT prophylaxis Current Visit: Yes Status: Acute Code(s): ANH9193 - SNOMED Code(s): 710763577 (6) HTN (hypertension) Current Visit: Yes Status: Acute Code(s): I10 - ESSENTIAL (PRIMARY) HYPERTENSION SNOMED Code(s): 52134111 Comment: sbp wnl continue outpt meds
[2018-03-20] MEDS: Omeprazole CAP* 20 MG PO SCH (16:52)
[2018-03-20] MEDS: Atorvastatin* 40 MG TAB PO SCH (16:52)
[2018-03-20] MEDS: Enoxaparin(*) 40 MG/0.4 ML SYR SUBCUT SCH (20:31)
[2018-03-20] MEDS: cefTRIAXone(*) 1 GM in NS 0.9% 50 ML* 50 ML IVPB SCH (20:35)
[2018-03-20] MEDS: Azithromycin IV(*) 500 MG in NS 0.9% 250 ML* 250 ML IVPB SCH (21:09)
[2018-03-21] MEDS: Levalbuterol 0.63MG/3ML NEB* UNIT OF USE INH SCH (01:56)
[2018-03-21] MEDS: methylPREDNISolone SOD 40 MG* 1 ML VIAL IV SCH ×3 (05:18→13:29)
[2018-03-21] MEDS ORDERED: Levalbuterol 0.63MG/3ML NEB* UNIT OF USE INH PRN (06:34)
[2018-03-21] MEDS: Losartan TAB* 25 MG PO SCH (08:44)
[2018-03-21] MEDS: Gabapentin CAP(*) 300 MG PO SCH ×2 (08:44→20:19)
[2018-03-21] MEDS: Insulin REGULAR(*) 1 UNITS UNIT SUBCUT SCH ×4 (08:45→21:00)
[2018-03-21] MEDS: Furosemide IV* 10 MG/ML 2 ML VIAL (20 MG) IV SCH (08:45)
[2018-03-21] MEDS: Metoprolol Tartrate TAB* 25 MG PO SCH ×2 (08:45→20:19)
[2018-03-21] MEDS: CMCS:Cyclosporine 0.05% OPHTH (NF) 0.4 ML VIAL BOTH EYES SCH ×2 (08:46→21:14)
[2018-03-21] MEDS: Aspirin EC TAB* 81 MG TAB.EC PO SCH (08:46)
[2018-03-21 08:48] LABS: ABS Basophils 0 10^3/ul (0-0.2); ABS Eosinophils 0 10^3/ul (0-0.6); ABS Lymphocytes 0.8 10^3/ul (1.0-4.8); ABS Monocytes 0.5 10^3/ul (0-0.8); ABS Neutrophils 13.5 10^3/ul (1.5-7.7); ABS Nucleated RBC 0 10^3/ul; Eosinophil % 0 %; Hematocrit 34 % (35-47); Hemoglobin 11.4 g/dl (12.0-16.0); Lymphocyte % 5.4 %; Mean Corpuscular HGB Conc 33 g/dl (31-36); Mean Corpuscular Hemoglobin 30 pg (27-31); Mean Corpuscular Volume 90 fL (80-97); Mean Platelet Volume 8.3 fL (7.4-10.4); Nucleated Red Blood Cells % 0; Platelet Count 240 10^3/ul (150-450); Red Blood Count 3.81 10^6/ul (4.00-5.40); Red Cell Distribution Width 15 % (10.5-15); White Blood Count 14.8 10^3/ul (3.5-10.8)
[2018-03-21 09:07] LABS: BUN/Creatinine Ratio 29.9 (8-20); EGFR Non-African American 64.2 (>60); Potassium 3.8 mmol/L (3.5-5.0)
--- NOTE | 2018-03-21 13:18 | PN ---
Subjective Date of Service: 03/21/18 Interval History: reports improvement in cough and sob Objective Active Medications: Acetaminophen (Tylenol Tab*) 650 mg PO Q6H PRN PRN Reason: FEVER/PAIN Albuterol/Ipratropium (Duoneb (Albuterol 2.5 Mg/Ipratropium 0.5 Mg)) 1 neb INH [id number] AWAKE PRN PRN Reason: sob/wheexing Aspirin (Aspirin Ec Tab*) 81 mg PO QAM [facility] Last Admin: 03/21/18 08:46 Dose: 81 mg Atorvastatin Calcium (Lipitor*) 40 mg PO QPM [facility] Last Admin: 03/20/18 16:52 Dose: 40 mg Bisacodyl (Dulcolax Ec Tab*) 5 mg PO DAILY PRN PRN Reason: CONSTIPATION Last Admin: 03/19/18 23:17 Dose: 5 mg Cyclosporine (Restasis 0.05% Oph) 1 drop BOTH EYES BID [facility]; Protocol Last Admin: 03/21/18 08:46 Dose: 1 drop Enoxaparin Sodium (Lovenox(*)) 40 mg SUBCUT Q24H [facility] Last Admin: 03/20/18 20:31 Dose: 40 mg Furosemide (Lasix Iv*) 20 mg IV BID [facility] Last Admin: 03/21/18 08:45 Dose: 20 mg Gabapentin (Neurontin Cap(*)) 300 mg PO BID [facility] Last Admin: 03/21/18 08:44 Dose: 300 mg Guaifenesin/Dextromethorphan (Robitussin Dm*) 5 ml PO Q4H PRN PRN Reason: COUGH Ceftriaxone Sodium 1 gm/ (Sodium Chloride) 50 mls @ 200 mls/hr IVPB Q24H [facility] Last Admin: 03/20/18 20:35 Dose: 200 mls/hr Azithromycin 500 mg/ Sodium (Chloride) 250 mls @ 250 mls/hr IVPB Q24H [facility] Last Admin: 03/20/18 21:09 Dose: 250 mls/hr Insulin Human Regular (Insulin Regular(*)) 0 units SUBCUT ACHS [facility]; Protocol Last Admin: 03/21/18 08:45 Dose: 4 units Levalbuterol HCl (Xopenex 0.63mg/3ml Neb*) 0.63 mg INH Q6H PRN PRN Reason: SOB/WHEEZING Losartan Potassium (Cozaar Tab*) 25 mg PO QAM [facility] Last Admin: 03/21/18 08:44 Dose: 25 mg Melatonin (Melatonin) 3 mg PO BEDTIME PRN; Protocol PRN Reason: SLEEP Last Admin: 03/19/18 23:50 Dose: 3 mg Methylprednisolone Sodium Succinate (Solu-Medrol 40 Mg) 20 mg IV Q8H [facility] Last Admin: 03/21/18 05:18 Dose: 20 mg Metoprolol Tartrate (Lopressor Tab*) 12.5 mg PO BID [facility] Last Admin: 03/21/18 08:45 Dose: 12.5 mg Omeprazole (Prilosec Cap*) 20 mg PO QPM [facility] Last Admin: 03/20/18 16:52 Dose: 20 mg Vital Signs - 8 hr 03/21/18 03/21/18 03/21/18 07:20 07:52 08:00 Temperature 97.8 F Pulse Rate 69 Respiratory 21 21 Rate Blood Pressure 129/67 (mmHg) O2 Sat by Pulse 98 98 98 Oximetry 03/21/18 03/21/18 03/21/18 08:44 10:50 11:31 Temperature 97.8 F Pulse Rate 58 Respiratory 20 22 20 Rate Blood Pressure 145/68 (mmHg) O2 Sat by Pulse 100 Oximetry Oxygen Devices in Use Now: Nasal Cannula Eyes: No Scleral Icterus Ears/Nose/Mouth/Throat: NL Teeth, Lips, Gums Neck: NL Appearance and Movements; NL JVP Respiratory: Symmetrical Chest Expansion and Respiratory Effort, - - occasional wheezes Cardiovascular: NL Sounds; No Murmurs; No JVD Abdominal: NL Sounds; No Tenderness; No Distention Extremities: No Edema Skin: No Rash or Ulcers Neurological: Alert and Oriented x 3 Result Diagrams: 03/21/18 08:30 03/21/18 08:30 Microbiology and Other Data: Microbiology 03/20/18 06:10 Gram Stain - Final Sputum Expectorated 03/19/18 23:39 Influenza Types A,B Antigen - Final Nasal Specimen received for Influenza A/B Molecular testing EKG Data: ns lbbb Assess/Plan/Problems-Billing Assessment: 72 yr old wf with hx of cad s/p cabg 4 v one yr ago copd not on home oxygen presented with sob/wheeler/wheezing/fever to 102 ---> initial wbc wnl but chest x ray done in urgent clinic showed b/l pna bnp on admission is close to 500 wbc is wnl - Patient Problems (1) Community acquired pneumonia Current Visit: Yes Status: Acute Code(s): J18.9 - PNEUMONIA, UNSPECIFIED ORGANISM SNOMED Code(s): 544776120 Comment: kyle and mg duoneb with xopenex prn oxygen as tolerated robutussin ck sputum cx (2) COPD (chronic obstructive pulmonary disease) Current Visit: Yes Status: Acute Code(s): J44.9 - CHRONIC OBSTRUCTIVE PULMONARY DISEASE, UNSPECIFIED SNOMED Code(s): 62945698 Comment: oxygen support duoneb solumderol 40 mg times one given followed by solumderol 20 mg q 8 (3) CAD (coronary artery disease) Current Visit: Yes Status: Acute Code(s): I25.10 - ATHSCL HEART DISEASE OF [place] CORONARY ARTERY W/O ANG PCTRS SNOMED Code(s): 04620795 Comment: tele with rosaura due to wheeler c/o echo continue outpt meds (4) Diastolic CHF Current Visit: Yes Status: Acute Code(s): I50.30 - UNSPECIFIED DIASTOLIC ( CONGESTIVE) HEART FAILURE SNOMED Code(s): 998625846 Comment: pt was found to have diffuse ronchi recd lasix 20 mg ivp times one moniter lytes echo (5) DVT prophylaxis Current Visit: Yes Status: Acute Code(s): NMG9760 - SNOMED Code(s): 498131558 (6) HTN (hypertension) Current Visit: Yes Status: Acute Code(s): I10 - ESSENTIAL (PRIMARY) HYPERTENSION SNOMED Code(s): 08289102 Comment: sbp wnl continue outpt meds
[2018-03-21] MEDS: Omeprazole CAP* 20 MG PO SCH (17:41)
[2018-03-21] MEDS: Atorvastatin* 40 MG TAB PO SCH (17:41)
[2018-03-21] MEDS: cefTRIAXone(*) 1 GM in NS 0.9% 50 ML* 50 ML IVPB SCH (20:15)
[2018-03-21] MEDS: Enoxaparin(*) 40 MG/0.4 ML SYR SUBCUT SCH (20:21)
[2018-03-21] MEDS: Azithromycin IV(*) 500 MG in NS 0.9% 250 ML* 250 ML IVPB SCH (21:00)
[2018-03-21] MEDS: Bisacodyl EC TAB* 5 MG PO PRN (21:14)
[2018-03-21] MEDS: Melatonin 3 MG TAB PO PRN (21:14)
[2018-03-21] MEDS: GuaiFENesin DM* 5 ML UDC PO PRN (21:14)
[2018-03-22] MEDS: methylPREDNISolone SOD 40 MG* 1 ML VIAL IV SCH ×2 (02:08→14:02)
[2018-03-22 06:50] LABS: ABS Basophils 0 10^3/ul (0-0.2); ABS Eosinophils 0 10^3/ul (0-0.6); ABS Lymphocytes 0.9 10^3/ul (1.0-4.8); ABS Monocytes 0.3 10^3/ul (0-0.8); ABS Neutrophils 11.4 10^3/ul (1.5-7.7); ABS Nucleated RBC 0 10^3/ul; Eosinophil % 0 %; Hematocrit 35 % (35-47); Hemoglobin 11.5 g/dl (12.0-16.0); Lymphocyte % 7.2 %; Mean Corpuscular HGB Conc 33 g/dl (31-36); Mean Corpuscular Hemoglobin 30 pg (27-31); Mean Corpuscular Volume 90 fL (80-97); Nucleated Red Blood Cells % 0.1; Platelet Count 266 10^3/ul (150-450); Red Blood Count 3.89 10^6/ul (4.00-5.40); Red Cell Distribution Width 14 % (10.5-15); White Blood Count 12.6 10^3/ul (3.5-10.8)
[2018-03-22 07:05] LABS: Calcium 8.9 mg/dL (8.6-10.3); Potassium 3.5 mmol/L (3.5-5.0)
[2018-03-22 07:11] LABS: EGFR Non-African American 66.8 (>60)
[2018-03-22] MEDS: Metoprolol Tartrate TAB* 25 MG PO SCH ×2 (07:50→20:27)
[2018-03-22] MEDS: Aspirin EC TAB* 81 MG TAB.EC PO SCH (07:51)
[2018-03-22] MEDS: Losartan TAB* 25 MG PO SCH (07:51)
[2018-03-22] MEDS: Gabapentin CAP(*) 300 MG PO SCH ×2 (07:51→20:27)
[2018-03-22] MEDS: CMCS:Cyclosporine 0.05% OPHTH (NF) 0.4 ML VIAL BOTH EYES SCH ×2 (07:51→20:27)
[2018-03-22] MEDS: Insulin REGULAR(*) 1 UNITS UNIT SUBCUT SCH ×4 (08:12→21:31)
[2018-03-22] MEDS: Omeprazole CAP* 20 MG PO SCH (17:17)
[2018-03-22] MEDS: Atorvastatin* 40 MG TAB PO SCH (17:17)
--- NOTE | 2018-03-22 17:26 | PN ---
Subjective Date of Service: 03/22/18 Interval History: Ms. Aguirre reports feeling ok today but continues to have cough. She denies other complaint. Objective Active Medications: Acetaminophen (Tylenol Tab*) 650 mg PO Q6H PRN Albuterol/Ipratropium (Duoneb (Albuterol 2.5 Mg/Ipratropium 0.5 Mg)) 1 neb INH [id number] AWAKE PRN Aspirin (Aspirin Ec Tab*) 81 mg PO QAM MITZY Atorvastatin Calcium (Lipitor*) 40 mg PO QPM MITZY Bisacodyl (Dulcolax Ec Tab*) 5 mg PO DAILY PRN Cyclosporine (Restasis 0.05% Ophth) 1 drop BOTH EYES BID MITZY; Protocol Enoxaparin Sodium (Lovenox(*)) 40 mg SUBCUT Q24H MITZY Gabapentin (Neurontin Cap(*)) 300 mg PO BID MITZY Guaifenesin/Dextromethorphan (Robitussin Dm*) 5 ml PO Q4H PRN Ceftriaxone Sodium 1 gm/ (Sodium Chloride) 50 mls @ 200 mls/hr IVPB Q24H MITZY Azithromycin 500 mg/ Sodium (Chloride) 250 mls @ 250 mls/hr IVPB Q24H MITZY Insulin Human Regular (Insulin Regular(*)) 0 units SUBCUT ACHS MITZY; Protocol Levalbuterol HCl (Xopenex 0.63mg/3ml Neb*) 0.63 mg INH Q6H PRN Losartan Potassium (Cozaar Tab*) 25 mg PO QAM [facility] Melatonin (Melatonin) 3 mg PO BEDTIME PRN; Protocol Methylprednisolone Sodium Succinate (Solu-Medrol 40 Mg) 20 mg IV Q12H MITZY Metoprolol Tartrate (Lopressor Tab*) 12.5 mg PO BID MITZY Omeprazole (Prilosec Cap*) 20 mg PO QPM [facility] Vital Signs: Temp Pulse Resp BP Pulse Ox 97.9 F 66 18 143/63 98 03/22/18 15:13 03/22/18 15:13 03/22/18 15:01 03/22/18 15:01 03/22/18 15:01 Oxygen Devices in Use Now: None Appearance: Female sitting up in bed in NAD Eyes: No Scleral Icterus Ears/Nose/Mouth/Throat: Mucous Membranes Moist Neck: Trachea Midline Respiratory: Symmetrical Chest Expansion and Respiratory Effort, - - Coarse rhonchi bilaterally Cardiovascular: NL Sounds; No Murmurs; No JVD, No Edema Abdominal: NL Sounds; No Tenderness; No Distention Extremities: No Edema Skin: No Rash or Ulcers Neurological: Alert and Oriented x 3, NL Muscle Strength and Tone Nutrition: Taking PO's Result Diagrams: 03/22/18 06:26 03/22/18 06:26 Microbiology and Other Data: . EKG Data: . Assess/Plan/Problems-Billing Assessment: Ms. Aguirre is a 72 yr old female with hx of CAD s/p CABG and COPD not on home oxygen who was admitted with pneumonia. - Patient Problems (1) Community acquired pneumonia Comment: - Complete course of ceftriaxone and azithromycin (2) COPD (chronic obstructive pulmonary disease) Comment: - Switch to prednisone and begin taper (3) CAD (coronary artery disease) Comment: - Asymptomatic (4) Diastolic CHF Comment: - Persistent rhonchi, ? component of CHF - Plan for echo (5) HTN (hypertension) Comment: - SBP 120-140s - Continue metoprolol (6) Atrial fib/flutter, transient Comment: - Now in NSR - No longer anticoagulated outpatient, follow up with PCP as needed. (7) DM type 2 (diabetes mellitus, type 2) Comment: - BGs 70-300s - Continue SSI coverage for meals - Not on home meds, likley elevated due to steroids (8) Dyslipidemia Comment: - Continue atorvastatin. (9) DVT prophylaxis Comment: - Lovenox (10) Full code status Comment: Status and Disposition: Inpatient. Anticipate discharge to home when medically stable.
[2018-03-22] MEDS: Enoxaparin(*) 40 MG/0.4 ML SYR SUBCUT SCH (20:27)
[2018-03-22] MEDS: cefTRIAXone(*) 1 GM in NS 0.9% 50 ML* 50 ML IVPB SCH (20:28)
[2018-03-22] MEDS: GuaiFENesin DM* 5 ML UDC PO PRN (20:28)
[2018-03-22] MEDS: Azithromycin IV(*) 500 MG in NS 0.9% 250 ML* 250 ML IVPB SCH (22:22)
[2018-03-23] MEDS: GuaiFENesin DM* 5 ML UDC PO PRN ×2 (06:23→12:26)
[2018-03-23] MEDS ORDERED: Metoprolol Tartrate TAB* 25 MG PO SCH (06:35)
[2018-03-23] MEDS: Losartan TAB* 25 MG PO SCH (07:46)
[2018-03-23] MEDS: Aspirin EC TAB* 81 MG TAB.EC PO SCH (07:46)
[2018-03-23] MEDS: CMCS:Cyclosporine 0.05% OPHTH (NF) 0.4 ML VIAL BOTH EYES SCH (07:46)
[2018-03-23] MEDS: Gabapentin CAP(*) 300 MG PO SCH (07:47)
[2018-03-23] MEDS: Insulin REGULAR(*) 1 UNITS UNIT SUBCUT SCH ×2 (07:47→12:24)
[2018-03-23] MEDS ORDERED: predniSONE TAB* 20 MG PO SCH (09:00)
--- NOTE | 2018-03-23 09:14 | ECHO ---
Patient: [facility] Rec#: [id number] : 1945 Date: 03/23/2018 Age: 72y Height: 157 cm / 61.8 in Weight: 77.6 kg / 171.0 lbs Sex: F BSA: 1.78 Room#: [facility] Admit Date#: 03/19/2018 Type: Inpatient Referring: Mitzi Salcedo NP Reading: Sanya Agustin MD [employer] Operator: Sandeep Perry RDCS CC: Jael Valencia MD CC: Elder Ragsdale, DO Transthoracic Echocardiogram Indication: Congestive heart failure BP: 146/83 HR: 51 Rhythm: Bradycardia Findings History: S/P CABG, Aortic valve replacement, mitral valve repair, CAD, IA, LBBB, HTN, DM, former smoker, HLD. Technical Comments: The study quality is fair. Completed at 0840. Left Ventricle: The left ventricular chamber size is mildly dilated. Mild concentric left ventricular hypertrophy is observed. There is global hypokinesis of the left ventricle with minor regional variation. There is moderately decreased left ventricular systolic function. The estimated ejection fraction is 35-40%. Post surgical hypokinesis of the interventricular septum is observed consistent with coronary artery bypass. There is no consistent Doppler evidence of clinically significant diastolic dysfunction. The patient was unable to perform a Valsalva maneuver. Left Atrium: The left atrium is severely dilated. Right Ventricle: Moderator Band present. The right ventricular cavity size is normal. The right ventricular global systolic function is mildly reduced. Right Atrium: The right atrium is moderately dilated. Aortic Valve: There is trace to mild aortic regurgitation. The mean gradient of the aortic valve is 22 mmHg. Peak velocity 3.2 m/sec The peak instantaneous gradient of the aortic valve is 42 mmHg. The aortic valve area, by peak velocities, is calculated at 0.59 cm2. The aortic valve area, by VTI's, is calculated at 0.57 cm2. The measured aortic regurgitation pressure half-time is 829 msec. A bio-prosthetic aortic valve is present. There is abnormal regurgitation of the bio-prosthetic aortic valve. Mitral Valve: There is moderate to severe mitral regurgitation. There is mild mitral stenosis. The mean gradient across the mitral valve is 5 mmHg. The peak gradient across the mitral valve is 14 mmHg. The pressure half time of the mitral valve is 150 msec. The mitral valve area, by pressure half time, is calculated at 1.5 cm2. Mitral valve repair functioning abnormally. Tricuspid Valve: The tricuspid valve leaflets are normal. There is mild to moderate tricuspid regurgitation. The right ventricular systolic pressure is estimated at 34 mmHg. There is evidence of borderline pulmonary hypertension. There is no tricuspid stenosis. Pulmonic Valve: The pulmonic valve appears normal. There is trace to mild pulmonic regurgitation. There is no pulmonic stenosis. Pericardium: There is no significant pericardial effusion. Aorta: There is moderate dilatation of the ascending aorta. There is no dilatation of the aortic arch. The aortic root is normal in size. Pulmonary Artery: The main pulmonary artery appears normal. Venous: The inferior vena cava appears normal in size. There is a greater than 50% respiratory change in the inferior vena cava dimension. Conclusions There is global hypokinesis of the left ventricle with minor regional variation. There is moderately decreased left ventricular systolic function. The estimated ejection fraction is 35-40%. Post surgical hypokinesis of the interventricular septum is observed consistent with coronary artery bypass. A bio-prosthetic aortic valve is present. The mean gradient of the aortic valve is 22 mmHg. Peak velocity 3.2 m/sec There is trace to mild aortic regurgitation. There is abnormal regurgitation of the bio-prosthetic aortic valve. There is mild mitral stenosis. The mean gradient across the mitral valve is 5 mmHg. There is moderate to severe mitral regurgitation. There is mild to moderate tricuspid regurgitation. There is evidence of borderline pulmonary hypertension. There is no significant pericardial effusion. Compared to study 11/12/15, the LV function is slightly lower. THe aortic valve is slightly more stenotic. The MR is new. Measurements Name Value Normal Range RVIDd (AP) 2D 3.6 cm (0.9 - 2.6) RVDdMajor (2D) 4.1 cm (2.2 - 4.4) RAd ISD 4CH 5.9 cm (3.4 - 4.9) RA (A4C)W 4.4 cm (2.9 - 4.6) IVSd (2D) 1.1 cm (0.6 - 1) LVPWd (2D) 1.1 cm (0.6 - 1) LVIDd (2D) 5.7 cm (3.6 - 5.4) LVIDs (2D) 4.9 cm - LV FS (2D) 14 % (25 - 45) Aortic Annulus 1.9 cm (1.4 - 2.6) Ao root diameter (2D) 3.4 cm (2.1 - 3.5) Ascending Ao 4.7 cm (2.1 - 3.4) Aortic arch 2.9 cm (1.8 - 3.4) LA dimension (AP) 2D 4.5 cm (2.3 - 3.8) LAd ISD 4CH 5.8 cm (2.9 - 5.3) LA ISD 4CH W 5.3 cm (2.5 - 4.5) Name Value Normal Range LA ESV BP (A/L) index 58 ml/m2 - Name Value Normal Range MV E-wave Vmax 1.7 m/sec - MV deceleration time 271 msec - MV A-wave Vmax 1.2 m/sec - MV E:A ratio 1.4 ratio - LV septal e' Vmax 0.03 m/sec - LV lateral e' Vmax 0.03 m/sec - LV E:e' septal ratio 57 ratio - LV E:e' lateral ratio 57 ratio - Name Value Normal Range AV Vmax 3.2 m/sec - AV VTI 76.5 cm - AV peak gradient 42 mmHg - AV mean gradient 22 mmHg - LVOT diameter 2 cm - LVOT Vmax 0.6 m/sec - LVOT VTI 13.9 cm - LVOT peak gradient 2 mmHg - LVOT mean gradient 1 mmHg - DOI (VTI) 0.2 ratio - MARILEE (continuity Vmax) 0.59 cm2 - MARILEE (continuity VTI) 0.57 cm2 - AR PHT 829 msec - ABRAM Vmax 0.7 m/sec - Name Value Normal Range MV Vmax 1.9 m/sec - MV peak gradient 14 mmHg - MV mean gradient 5 mmHg - MV PHT 150 msec - MR Vmax 6.3 m/sec - MR VTI 253 cm - MR flow (PISA) 205.6 ml/sec - MR ERO 0.33 cm2 - MR PISA radius 0.9 cm - MR alias Vmax 40 cm/sec - MVA (PHT) 1.5 cm2 - Name Value Normal Range TR Vmax 2.8 m/sec - TR peak gradient 31 mmHg - RAP 3 mmHg - RVSP 34 mmHg - IVC diameter 1.9 cm - Name Value Normal Range PV Vmax 1.1 m/sec - PV VTI 5 cm - AZ end-diastolic Vmax 1.1 m/sec - PA end-diastolic pressur5 mmHg -
[2018-03-23 12:22] VITALS: BP 145/74
--- NOTE | 2018-03-23 14:15 | PN ---
Subjective Date of Service: 03/23/18 Interval History: Ms. Aguirre reports feeling well today. She has an intermittent cough but it is much better. She denies chest pain or other complaint. Objective Active Medications: Acetaminophen (Tylenol Tab*) 650 mg PO Q6H PRN Albuterol/Ipratropium (Duoneb (Albuterol 2.5 Mg/Ipratropium 0.5 Mg)) 1 neb INH [id number] AWAKE PRN Aspirin (Aspirin Ec Tab*) 81 mg PO QAM MITZY Atorvastatin Calcium (Lipitor*) 40 mg PO QPM MITZY Bisacodyl (Dulcolax Ec Tab*) 5 mg PO DAILY PRN Cyclosporine (Restasis 0.05% Oph) 1 drop BOTH EYES BID MITZY; Protocol Enoxaparin Sodium (Lovenox(*)) 40 mg SUBCUT Q24H MITZY Gabapentin (Neurontin Cap(*)) 300 mg PO BID MITZY Guaifenesin/Dextromethorphan (Robitussin Dm*) 5 ml PO Q4H PRN Ceftriaxone Sodium 1 gm/ (Sodium Chloride) 50 mls @ 200 mls/hr IVPB Q24H MITZY Azithromycin 500 mg/ Sodium (Chloride) 250 mls @ 250 mls/hr IVPB Q24H MITZY Insulin Human Regular (Insulin Regular(*)) 0 units SUBCUT ACHS MITZY; Protocol Levalbuterol HCl (Xopenex 0.63mg/3ml Neb*) 0.63 mg INH Q6H PRN Losartan Potassium (Cozaar Tab*) 25 mg PO QAM MITZY Melatonin (Melatonin) 3 mg PO BEDTIME PRN; Protocol Metoprolol Tartrate (Lopressor Tab*) 12.5 mg PO BID MITZY Omeprazole (Prilosec Cap*) 20 mg PO QPM MITZY Prednisone (Deltasone Tab*) 40 mg PO DAILY [facility] Vital Signs: Temp Pulse Resp BP Pulse Ox 98.3 F 62 22 145/74 96 03/23/18 11:12 03/23/18 11:21 03/23/18 11:12 03/23/18 11:12 03/23/18 11:12 Oxygen Devices in Use Now: None Appearance: Female sitting up on edge of bed in NAD Eyes: No Scleral Icterus Ears/Nose/Mouth/Throat: Mucous Membranes Moist Neck: Trachea Midline Respiratory: Symmetrical Chest Expansion and Respiratory Effort, Clear to Auscultation Cardiovascular: NL Sounds; No Murmurs; No JVD, No Edema Abdominal: NL Sounds; No Tenderness; No Distention Extremities: No Edema Skin: No Rash or Ulcers Neurological: Alert and Oriented x 3, NL Muscle Strength and Tone Nutrition: Taking PO's Result Diagrams: 03/22/18 06:26 03/22/18 06:26 Microbiology and Other Data: . EKG Data: . Assess/Plan/Problems-Billing Assessment: Ms. Aguirre is a 72 yr old female with hx of CAD s/p CABG and COPD not on home oxygen who was admitted with pneumonia. - Patient Problems (1) Community acquired pneumonia Comment: - Complete course of azithromycin (2) COPD (chronic obstructive pulmonary disease) Comment: - Switch to prednisone and begin taper (3) CAD (coronary artery disease) Comment: - Asymptomatic (4) Diastolic CHF Comment: - Lungs clear today - Echo confirms SYSTOLIC CHF (CHRONIC) no evidence of acute exacerbation - EF is lower and she does have new MR, recommended close follow up with Dr. Ragsdale (5) HTN (hypertension) Comment: - SBP 120-140s - Continue metoprolol (6) Atrial fib/flutter, transient Comment: - Now in NSR - No longer anticoagulated outpatient, follow up with PCP as needed. (7) DM type 2 (diabetes mellitus, type 2) Comment: - BGs 70-300s - Continue SSI coverage for meals - Not on home meds, likley elevated due to steroids (8) Dyslipidemia Comment: - Continue atorvastatin. (9) DVT prophylaxis Comment: - Lovenox (10) Full code status Comment: Status and Disposition: Inpatient. Discharge to home.
--- NOTE | 2018-03-23 23:12 | DS ---
CC: Dr. Jael Valencia; Dr. Elder Ragsdale * [facility] MEDICINE DISCHARGE SUMMARY: DATE OF ADMISSION: 03/19/18 DATE OF DISCHARGE: 03/23/18 PRIMARY CARE PHYSICIAN: Dr. Jael Valencia. SUPPORT TEAM ASSOC: Dr. Elder Ragsdale. ATTENDING PHYSICIAN: Dr. Darlene Trejo *(dictation provided by Mitzi Salcedo NP) . PRIMARY DIAGNOSES: 1. Pneumonia. 2. Chronic obstructive pulmonary disease exacerbation. SECONDARY DIAGNOSES: 1. History of coronary artery disease. 2. Systolic congestive heart failure with new ejection fraction of 35% to 40% and new [id number] mitral regurgitation. 3. Hypertension. 4. Atrial fibrillation. 5. Type 2 diabetes. 6. Dyslipidemia. 7. History of aortic valve replacement. 8. History of coronary artery bypass graft. MEDICATIONS AT THE TIME OF DISCHARGE: 1. Losartan 25 mg p.o. q.a.m. 2. Gabapentin 300 mg p.o. b.i.d. 3. Cyclosporine 1 drop both eyes b.i.d. 4. Dulcolax 1 tab p.o. as needed. 5. Atorvastatin 40 mg p.o. q.p.m. 6. Aspirin 81 mg p.o. q.a.m. 7. Omeprazole 20 mg p.o. q.p.m. 8. Metoprolol tartrate 12.5 mg p.o. b.i.d. 9. Prednisone 10 mg p.o. daily. 10. Guaifenesin 5 mL p.o. q.4 hours p.r.n. 11. Azithromycin 250 mg p.o. daily x3 days. HOSPITAL COURSE: Ms. Aguirre is a 72-year-old female with a past medical history of ischemic cardiomyopathy, aortic valve replacement, diabetes, and COPD, who presents to the hospital on 03/19/18 with concern for cough and fever. Please see dictated H and P from Dr. Grijalva for complete details. In brief, at the time of arrival, the patient was found to have diffuse rales and wheezing upon examination. She had a chest x-ray, which showed bilateral infiltrates suggestive of a pneumonia, less likely congestive heart failure exacerbation. She was afebrile. She was not tachycardic. Her blood pressure was in the 140s to 160s and she required 2 L nasal cannula. Her labs showed new leukocytosis. Her CRP was 83.97. She had lactic acid of 3.2. She did have an elevated BNP to 578. Ms. Aguirre was admitted to the hospital and overall, it appeared that she had a community-acquired pneumonia with exacerbation of COPD. She responded well to treatment with ceftriaxone and azithromycin. She is doing well today. She is no longer on oxygen. She has an intermittent mild cough. Her lungs are clear to auscultation. In terms of her history of cardiac disease, the patient shows no evidence of heart failure. She has no lower extremity edema and no clear evidence of pulmonary edema on chest x-ray. We did obtain a transthoracic echocardiogram today and it did show changes including reduced ejection fraction from down to 35% to 40%. She also has new [id number] mitral regurgitation. The psychometrist also notes that the aortic valve is slightly more stenotic. Ms. Aguirre is asymptomatic, however. Ms. Aguirre is medically stable for discharge to home. I would like her to follow up closely with Dr. Valencia regarding resolution of pneumonia and follow up closely with Dr. Ragsdale, her outpatient psychometrist, for evaluation of her cardiac function. DISPOSITION: Home. DIET: Low fat, low salt, low carb. ACTIVITY: As tolerated. FOLLOWUP PLANS: 1. Please follow up with Dr. Valencia in the next 3 to 7 days. 2. Please follow up with Dr. Ragsdale in the next 1 to 2 weeks. TIME SPENT: Approximately 60 minutes was spent in the discharge of this patient , more than half that time was spent with the patient at the bedside, reviewing the events leading up to this hospitalization, performing the physical examination, and reviewing my plan of care. MITZI SALCEDO NP [id number]/[facility] #: [id number] [place]
== END 2018-03-23 15:10 | disposition home or self-care (01) | DRG 139 ==
LOC: ED 18:55 → MED 20:50
PROVIDERS: ADMIT Internal Medicine; ATTEND Internal Medicine
DX: J18.9 Pneumonia, unspecified organism (principal); I50.42 Chronic combined systolic (congestive) and diastolic (congestive) heart failure; J44.1 Chronic obstructive pulmonary disease with (acute) exacerbation; J44.0 Chronic obstructive pulmonary disease with (acute) lower respiratory infection; T82.857A Stenosis of other cardiac prosthetic devices, implants and grafts, initial encounter; I25.10 Atherosclerotic heart disease of native coronary artery without angina pectoris; I44.7 Left bundle-branch block, unspecified; K21.9 Gastro-esophageal reflux disease without esophagitis; M17.0 Bilateral primary osteoarthritis of knee; M81.0 Age-related osteoporosis without current pathological fracture; E11.42 Type 2 diabetes mellitus with diabetic polyneuropathy; F41.9 Anxiety disorder, unspecified; E78.5 Hyperlipidemia, unspecified; I11.0 Hypertensive heart disease with heart failure; I48.91 Unspecified atrial fibrillation; I34.0 Nonrheumatic mitral (valve) insufficiency; I25.5 Ischemic cardiomyopathy; Z88.8 Allergy status to other drugs, medicaments and biological substances; Z91.041 Radiographic dye allergy status; Z95.1 Presence of aortocoronary bypass graft; Z87.891 Personal history of nicotine dependence; Z79.82 Long term (current) use of aspirin; Z79.52 Long term (current) use of systemic steroids; Y71.2 Prosthetic and other implants, materials and accessory cardiovascular devices associated with adverse incidents; Y92.9 Unspecified place or not applicable
CPT/HCPCS: 36415; 80048; 80053; 80061; 81003; 81015; 83036; 83605; 83880; 84443; 84484; 85025; 85610; 86140; 87040; 87070; 87205; 93005; 93306; 94640; 99284; A9270-GY; J0456; J0696; J1650; J1940; J2920; J3475; J7512

== ENCOUNTER 2022-03-28 08:55 | Inpatient (IN) ==
[2022-03-28 09:42] LABS: ABS Basophils 0.1 10^3/ul (0-0.2); ABS Eosinophils 1.5 10^3/ul (0-0.6); ABS Lymphocytes 1.7 10^3/ul (1.0-4.8); ABS Monocytes 0.4 10^3/ul (0-0.8); ABS Neutrophils 3.5 10^3/ul (1.5-7.7); Eosinophil % 21.2 %; Hematocrit 35 % (35-47); Hemoglobin 11.6 g/dL (12.0-16.0); Lymphocyte % 23.3 %; Mean Corpuscular HGB Conc 33 g/dL (31-36); Mean Corpuscular Hemoglobin 30 pg (27-31); Mean Corpuscular Volume 92 fL (80-97); Mean Platelet Volume 8.5 fL (7.4-10.4); Platelet Count 169 10^3/uL (150-450); Red Blood Count 3.81 10^6 /uL (3.70-4.87); Red Cell Distribution Width 14 % (10-15); White Blood Count 7.2 10^3/uL (3.5-10.8)
[2022-03-28 10:00] LABS: INR 1.12 (0.88-1.18)
[2022-03-28 10:22] LABS: Albumin 3.8 g/dL (3.2-5.2); Albumin/Globulin Ratio 1.5 (1-3); Calcium 8.6 mg/dL (8.6-10.3); Globulin 2.5 g/dL (2-4); Potassium 3.9 mmol/L (3.5-5.0); Total Bilirubin 0.8 mg/dL (0.2-1.0); Total Protein 6.3 g/dL (6.4-8.9); eGFR CKD-EPI 64.1 (>60)
[2022-03-28] MEDS ORDERED: Famotidine IV 10 MG/ML 2 ml VIAL (20 mg) IV SLOW PU ONE (10:37)
[2022-03-28] MEDS ORDERED: Al Hydrox/Mg Hydrox/Simet LIQ 30 ML UDC PO ONE (10:37)
[2022-03-28 11:21] LABS: High Sensitivity Troponin 1 Hr 49 pg/mL (<15)
[2022-03-28] MEDS ORDERED: Iodixanol (CONTRAST) 320 MG/ML 100 ML SDV IV ONE (12:04)
[2022-03-28 13:01] LABS: High Sensitivity Troponin 3 Hr 100 pg/mL (<15)
[2022-03-28] MEDS ORDERED: NS 0.9% 1000 ml BAG 1,000 ML IV SCH (14:00)
[2022-03-28] MEDS ORDERED: Heparin DRIP 25,000 UNITS BAG 25,000 UNITS/500 ML BAG IV SCH (14:00)
[2022-03-28] MEDS ORDERED: methylPREDNISolone SOD SUCC 125 mg 2 ML VIAL IV ONE (14:04)
[2022-03-28] MEDS ORDERED: Dextrose 50% Syringe 50 ml 25 GM/50 ML SYRINGE IV PUSH PRN (14:58)
[2022-03-28] MEDS ORDERED: Heparin 1,000 UNIT/ML 10 ml (10,000 UNITS) CATHLAB/DIALYSIS ONE (15:29)
[2022-03-28] MEDS ORDERED: fentaNYL 100 mcg/2 ml 50 MCG/ML VIAL ONE (15:29)
[2022-03-28] MEDS ORDERED: Midazolam 5 mg/5 ml VIAL 1 mg/ml 5 ml VIAL (5 mg) ONE (15:29)
[2022-03-28] MEDS ORDERED: niCARdipine 0.1MG/ML IVPREMIX 20 MG/200 ML BAG IV ONE (15:30)
[2022-03-28] MEDS ORDERED: Iohexol 350 (CONTRAST) 100 ML PAK IV ONE (15:30)
[2022-03-28] MEDS ORDERED: Lidocaine 1% MPF 5 ML VIAL ONE ×3 (15:30→16:26)
[2022-03-28] MEDS ORDERED: Heparin 2 UNITS/ML 1000 mls 2,000 ML IV ONE (15:30)
[2022-03-28] MEDS ORDERED: nitroGLYCERIN DRIP 25,000 MCG/250 ML BTL ONE (15:30)
[2022-03-28] MEDS: Cyclosporine 0.05% OPHTH (NF) 0.4 ML VIAL BOTH EYES SCH (21:54)
[2022-03-29] MEDS ORDERED: Aspirin EC 81 mg TAB.EC (enteric coated) PO SCH (09:00)
[2022-03-29] MEDS: Cyclosporine 0.05% OPHTH (NF) 0.4 ML VIAL BOTH EYES SCH (09:24)
[2022-03-29 09:38] LABS: CO2 Carbon Dioxide 18 mmol/L (22-32); Calcium 9.1 mg/dL (8.6-10.3); Chloride 107 mmol/L (101-111); Sodium 139 mmol/L (135-145)
[2022-03-29 09:44] LABS: Blood Urea Nitrogen 31 mg/dL (6-24); Glucose 276 mg/dL (70-100); eGFR CKD-EPI 54.8 (>60)
[2022-03-29 09:48] LABS: Anion Gap 14 mmol/L (2-11)
[2022-03-29 12:18] VITALS: BP 105/54
== END 2022-03-29 12:55 | disposition home or self-care (01) | DRG 190 ==
LOC: ED 08:55 → SUATTDRO 14:33 → EDHOLD 14:33 → MEDTELE 18:38
PROVIDERS: ADMIT Internal Medicine; ATTEND Internal Medicine